=== PATIENT | male | born 1975 | race Caucasian/White ===

== ENCOUNTER 2018-05-19 18:25 | Emergency (ER) | payer BC ==
[~2018-05-19] VITALS: Ht 188 cm; Wt 93.0 kg
[2018-05-19 19:04] VITALS: BP 115/72
== END 2018-05-19 18:45 | disposition home or self-care (01) ==
LOC: ER 18:27
DX: M70.22 Olecranon bursitis, left elbow (principal); F17.200 Nicotine dependence, unspecified, uncomplicated; Z88.6 Allergy status to analgesic agent; Y93.89 Activity, other specified
CPT/HCPCS: A4663